=== PATIENT | male | born 1970 | race Hispanic/Latino ===

== ENCOUNTER → 2018-02-23 | Outpatient (CLI) | payer OTHER ==
[~2018-02-23] MED LIST: OMEPRAZOLE40 MG PO; PRILOSEC OTC20 MG PO
--- NOTE | 2018-02-23 15:23 | Diagnostic Imaging Report ---
PROCEDURE:X-RAY RIGHT FINGER COMPARISON:None. INDICATIONS:SLAMMED RT. LONG FINGER IN CAR DOOR FINDINGS: Normal mineralization. Minimally angulated transverse fracture of the distal third of the distal phalanx of the third digit (long finger). No intraarticular extension. Joint spaces are within normal limits. Mild soft tissue swelling of the third finger tip. No radiopaque foreign bodies. CONCLUSION: Minimally angulated transverse fracture of the distal phalanx of the third digit. Dictated by: Andre Hoskins M.D. on 02/23/2018 at 15:23 Electronically approved by: Andre Hoskins M.D. on 02/23/2018 at 15:23
== END ==
LOC: RAD 14:28
PROVIDERS: ATTEND Family Medicine
DX: S60.031A Contusion of right middle finger without damage to nail, initial encounter (principal)

== ENCOUNTER → 2018-08-27 | Day surgery (SDC) | payer OTHER ==
[~2018-08-27] MED LIST changes: +AMLODIPINE PO; +AMLODIPINE-BEN1 EAC3 PO; +FENTANYL CITRATE/PF 100MCG/2 ML INJ ONE; +MIDAZOLAM HCL 5MG/ML 2ML VIAL ONE; +PROPOFOL IV EMULSION 10 MG/ML 20 ML VIAL ONE
--- NOTE | 2018-08-28 16:57 | Operative Report ---
DATE OF PROCEDURE: August 27, 2018 REFERRING PHYSICIAN: Dr. Saran Martinez. PROCEDURES PERFORMED 1. Esophagogastroduodenoscopy with biopsies. 2. Colonoscopy with polypectomy and biopsies. INDICATIONS FOR ESOPHAGOGASTRODUODENOSCOPY: Upper abdominal pain. INDICATIONS FOR COLONOSCOPY: History of colon polyps and surveillance colonoscopy. MEDICATION: Patient was done under MAC. Please see anesthesiologist's note. ESOPHAGOGASTRODUODENOSCOPY: With patient in lateral decubitus position, a flexible fiberoptic Olympus gastroscope was introduced into the esophagus under direct visualization without any difficulty. There was some patchy erythema noted in distal esophagus. The scope was then advanced with ease into the stomach. Mucosa overlying the antrum and the body revealed some patchy erythema and low-grade to moderate edema, and biopsies were obtained and sent to stain for H. pylori. Some hyperplastic appearing polyps were noted in the body of the stomach and some were partially excised with cold biopsy forceps. Pylorus appeared to be of normal contour and shape. It was intubated with ease and the scope was advanced all the way to the second portion of the duodenum. The scope was then withdrawn slowly. Mucosa overlying the proximal second portion and the duodenal bulb appeared to be within normal limits. The scope was then withdrawn back into the stomach and retroflexed. The mucosa overlying the fundus and the cardia appeared to be within normal limits. The scope was then straightened out. The stomach was decompressed. The scope was subsequently withdrawn. Patient tolerated the procedure well. IMPRESSION 1. Distal esophagitis. 2. Gastritis, biopsied. Biopsies sent to stain for Helicobacter pylori. 3. Gastric polyps, hyperplastic appearing, body, some partially excised with cold biopsy forceps. PLAN: Follow up histology. Continue omeprazole 40 mg 1 p.o. q.a.m. before meals. PROCEDURE FOR COLONOSCOPY: Patient was then turned around after adequate lubrication of the anal canal. A flexible fiberoptic Olympus colonoscope was inserted into the rectum with ease and advanced all the way to the cecum. There was some focal nodularity noted in the cecum that was biopsied. The scope was then withdrawn slowly. Mucosa overlying the ascending colon, transverse colon, and descending colon appeared to be within normal limits. Two minute polyps were hot biopsied from the sigmoid colon. One polyp was hot biopsied from the rectum. The scope was then retroflexed into the distal rectum and small internal hemorrhoids were noted and none of which was actively bleeding. The scope was then straightened out. It was subsequently withdrawn. Patient tolerated the procedure well. IMPRESSION 1. Focal nodularity, cecum biopsied. 2. Sigmoid colon polyps x2, hot biopsied. 3. Rectal polyp x1, hot biopsied. 4. Internal hemorrhoids, none actively bleeding. PLAN: Follow up histology. Initiate high-fiber low-fat diet. Initiate high-fiber supplement. Patient will need a followup colonoscopy in 3 to 5 years. Job#: [id number] VAS cc:DR SARAN MARTINEZ
--- OUTSIDE RECORDS SUMMARY | 2018-08-30 13:41 | XMS REPORT ---
Author [facility] Address Unknown Phone Unavailable Care Team Providers Care Production Shift Supervisor Name Role Phone SARAN MARTINEZ Unavailable Unavailable Problems This patient has no known problems. Allergies, Adverse Reactions, Alerts This patient has no known allergies or adverse reactions. Medications This patient has no known medications. Results Test Description Test Time Test Comments Text Results Atomic Results Result Comments FINGER RIGHT [place] [address] Patient Name: KALEY CHAVEZ MR #: [id number] : 1970 Age/Sex: 47/M Req #: [id number] Adm Physician: Ordered by: JUAN DOUGLAS, SARAN [place] MD Report #: [id number] Location: [facility] Room/Bed: Procedure: [id number] DX/FINGER RIGHT Exam Date: 02/23/18 Exam Time: 1444 REPORT STATUS: Signed PROCEDURE: X-RAY RIGHT FINGER COMPARISON: None. INDICATIONS: SLAMMED RT. LONG FINGER IN CAR DOOR FINDINGS: Normal mineralization. Minimally angulated transverse fracture of the distal third of the distal phalanx of the third digit (long finger). No intraarticular extension. Joint spaces are within normal limits. Mild soft tissue swelling of the third finger tip. No radiopaque foreign bodies. CONCLUSION: Minimally angulated transverse fracture of the distal phalanx of the third digit. Dictated by: Andre Vargas M.D. on 02/23/2018 at 15:23 Electronically approved by: Andre Vargas M.D. on 02/23/2018 at 15:23 Dictated By: ANDRE VARGAS MD 1523 Transcribed By: STELLA on 02/23/18 1523 COPY TO: SARAN MARTINEZ
== END | disposition home or self-care (01) ==
LOC: OR 10:01
PROVIDERS: ATTEND Internal Medicine Gastroenterology
DX: K29.70 Gastritis, unspecified, without bleeding (principal); D12.8 Benign neoplasm of rectum; K63.5 Polyp of colon; K31.7 Polyp of stomach and duodenum; K21.9 Gastro-esophageal reflux disease without esophagitis; K20.9 Esophagitis, unspecified; K63.89 Other specified diseases of intestine; K64.8 Other hemorrhoids; I10 Essential (primary) hypertension
CPT/HCPCS: 43239; 45380; 45384; 93005; J2250

== ENCOUNTER → 2021-06-28 | Day surgery (SDC) | payer OTHER ==
[~2021-06-28] MED LIST changes: -FENTANYL CITRATE/PF 100MCG/2 ML INJ ONE; +LIDOCAINE HCL 2% LOCAL INJ 5 ML SDV VIAL INJ ONE; +LIPITOR10 MG PO; +LOTREL 5-20 MG1 EACH PO; -MIDAZOLAM HCL 5MG/ML 2ML VIAL ONE
[2021-06-28 12:30] VITALS: BP 112/75
[2021-07-02 05:11] LABS: ENDOMYSIAL ANTIBODIES, IGA Negative (Negative)
== END | disposition home or self-care (01) ==
LOC: OR 08:57
PROVIDERS: ATTEND Internal Medicine Gastroenterology
DX: K21.9 Gastro-esophageal reflux disease without esophagitis (principal); Z86.010 Personal history of colon polyps; K62.1 Rectal polyp; K29.70 Gastritis, unspecified, without bleeding; K44.9 Diaphragmatic hernia without obstruction or gangrene; K31.89 Other diseases of stomach and duodenum; K64.8 Other hemorrhoids; I10 Essential (primary) hypertension; Z01.810 Encounter for preprocedural cardiovascular examination; Z01.812 Encounter for preprocedural laboratory examination; Z20.822 Contact with and (suspected) exposure to COVID-19
CPT/HCPCS: 43239; 45380; 82784; 83516; 86256; 93005; J2001; J2704; U0002; 45378

== ENCOUNTER 2022-03-28 00:28 | Emergency (ER) | payer OTHER ==
[~2022-03-28] VITALS: Ht 198.1 cm; Wt 123.8 kg
[~2022-03-28 00:28] MED LIST changes: -LIDOCAINE HCL 2% LOCAL INJ 5 ML SDV VIAL INJ ONE; -PROPOFOL IV EMULSION 10 MG/ML 20 ML VIAL ONE
== END 2022-03-28 00:55 | disposition home or self-care (01) ==
LOC: ER 00:33
DX: S01.21XA Laceration without foreign body of nose, initial encounter (principal); W25.XXXA Contact with sharp glass, initial encounter; Y92.008 Other place in unspecified non-institutional (private) residence as the place of occurrence of the external cause; I10 Essential (primary) hypertension; K21.9 Gastro-esophageal reflux disease without esophagitis
CPT/HCPCS: 99283

== ENCOUNTER 2025-06-27 14:04 | Emergency (ER) | payer OTHER ==
[~2025-06-27] VITALS: Ht 198.1 cm; Wt 123.8 kg
[2025-06-27 14:52] LABS: BASOPHILS % 1.1 % (0.0-1.0); EOSINOPHILS % 0.7 % (0.0-6.0); LYMPHOCYTES % 40.6 % (18.0-39.1); MONOCYTES % 6.0 % (4.4-11.3); NEUTROPHILS % 51.6 % (38.7-80.0); RED CELL DISTRIBUTION WIDTH 12.7 % (11.7-14.4)
[2025-06-27 15:06] LABS: EST GLOMERULAR FILTRATION RATE 93 ML/MIN (>=60)
[2025-06-27] MEDS: KETOROLAC TROMETHAMINE 30 MG/ML VIAL IV STA (15:29)
[2025-06-27] MEDS: SODIUM CHLORIDE FLUSH 10 ML SYR IV PRN (15:30)
[2025-06-27 16:15] VITALS: PULSE 58; RESP 16; TEMP 99.2; O2SAT 100
== END 2025-06-27 16:27 | disposition home or self-care (01) ==
LOC: ER 14:11
DX: R07.89 Other chest pain (principal); I10 Essential (primary) hypertension; E78.5 Hyperlipidemia, unspecified; K21.9 Gastro-esophageal reflux disease without esophagitis
CPT/HCPCS: 36415; 71045; 80053; 83880; 84484; 85025; 93005; 94760; 99284; J1885